=== PATIENT | male | born 1970 | race African-American/Black ===

== ENCOUNTER 2016-12-06 22:54 | Emergency (ER) | payer BC, MEDICAID ==
[~2016-12-06] VITALS: Ht 162.6 cm; Wt 66.7 kg
[2016-12-07 01:24] VITALS: BP 114/72
== END 2016-12-07 01:27 | disposition home or self-care (01) ==
LOC: M ED 12-07 00:32
DX: K40.90 Unilateral inguinal hernia, without obstruction or gangrene, not specified as recurrent (principal)

== ENCOUNTER → 2017-02-11 | Day surgery (SDC) | payer BC ==
[~2017-02-11] VITALS: Ht 160 cm; Wt 63.5 kg
[~2017-02-11] MED LIST: AUGM875T28 PO; BUPIVACAINE HCL 0.25% 30 ML VIAL As Ordered ONE; GLYCOPYRROLATE INJ 0.2 MG/ML 2 ML VIAL As Ordered ONE; IBUP-1114 PO; IBUP200C10 PO; IBUP80TA PO; KETOROLAC 30 MG/ML VIAL (J1885) As Ordered ONE; KETOROLAC 30 MG/ML VIAL (J1885) IV PRN; KETOROLAC 60 MG/2 ML VIAL (J1885) As Ordered ONE; LIDOCAINE 1% SDV INJ 30 ML VIAL As Ordered ONE; LIDOCAINE 2% INJ 100 MG/5 ML SDV (FOR ANES.) As Ordered ONE; LR 1,000 ML IV ONE; LR 1,000 ML IV SCH; METOCLOPRAMIDE INJ 10MG/2ML VIAL (J2765) As Ordered ONE; MIDAZOLAM INJ 2 MG/2 ML VIAL (J2250) As Ordered ONE; NEOSTIGMINE 1MG/ML 5 ML SYRINGE (J2710) As Ordered ONE; NORC1TAB4 PO; NORCO, ANEXSIA 5/325MG TABLET (HYDROcodone/ACETAMINOPHEN) PO PRN; ONDANSETRON 4MG/2ML VIAL (J2405) As Ordered ONE; ONDANSETRON 4MG/2ML VIAL (J2405) IV PRN; PERCOCET 5MG/325MG TAB PO PRN; PROPOFOL 200 MG/20 ML VIAL As Ordered ONE; ROCURONIUM BROMIDE 50 MG/5 ML VIAL/SYRINGE As Ordered ONE; dexameTHASONE 4 MG/ML 1ML VIAL (J1100) As Ordered ONE; fentaNYL 250 MCG/5 ML INJECTION (J3010) As Ordered ONE
--- NOTE | 2017-02-11 09:52 | ROOPDOC ---
[facility] Report Of Operation Report of Operation DATE OF PROCEDURE: 02/11/17 PREPROCEDURE DIAGNOSES: Bilateral inguinal hernia, left more symptomatic than right. POSTPROCEDURE DIAGNOSES: bilateral indirect inguinal hernia. PROCEDURE: Robotic Assisted Laparoscopic bilateral inguinal hernia repair(EVERARDO) . SURGEON: Marcelo Gagnon MD [facility] ADMINISTRATOR: Grabiel Geiger MD, Lauren HAYES ANESTHESIA: general. ESTIMATED BLOOD LOSS: Approximately 10 mL. COMPLICATIONS: none. REMARKS: Healthy 46 year old male with symptomatic left inguinal hernia also found to have a right inguinal hernia on exam precenting for bilateral inguinal hernia repair. DESCRIPTION OF PROCEDURE: Patient received 2 g of Ancef IV preoperatively for wound prophylaxis. Patient was brought to the operating room, placed supine on the operating table. Compression boots placed in both lower extremities for DVT prophylaxis. After adequate general anesthesia started, he was placed on a lithotomy position. A shin catheter placed without difficulty. His abdomen and groin/pelvic area then prepped and draped in the usual sterile fashion. After a surgical timeout we began our surgery. Entry to the abdomen done through a small incision above the umbilical skin cleft. A Veress needle is inserted on a controlled fashion. CO2 insufflation started to pressure 15 mmHg. Using the same incision a 5 mm Visiport was then placed under direct vision of laparoscope. The insertion site was inspected for injury and none was found. Patient was then positioned on a Trendelenburg position with the symptomatic (left) side tilted upwards for adequate view of the hernia defect. 2 working ports placed to the right and left of the umbilicus along the same line. The da Conrad robot to our was then positioned in between the patient's legs and the trochars doctor onto the robot. I then unscrubbed and to control of the camera and the laparoscopic instruments at the surgeon's console. Presence of bilateral indirect inguinal hernia was found. The left side appears larger than the right. Nothing was passing through the hernia defect. Starting at the left side. The peritoneum was opened up about 3 cm above the superior edge of the fascial defect of the inguinal hernia starting at the medial umbilical ligament going in an arc-like fashion laterally towards the level of the anterior superior iliac spine. This was then dissected mostly bluntly away from the abdominal wall. On approaching the inguinal hernia defect the hernia sac was pulled back into the preperitoneal space and carefully dissected off the testicular vessels and vas deferens. He has a large and redundant inguinal hernia sac which was fully reduced back into the abdomen. Moderate-sized lipoma was found and dissected free from the rest of the structures. Both these structures were promptly identified and from the hernia sac. After freeing up the hernia sac we continued dissecting it off inferiorly to from the vas deferens and testicular vessels. The preperitoneal space was dissected medially to expose the pubic tubercle up towards the symphysis pubis. The remaining areolar fibers were bluntly dissected away from the abdominal wall to create space for the mesh. After fully dissecting the preperitoneal space, we checked for adequate hemostasis. A medium sized 3-D Max light mesh was chosen. This was placed through the laparoscopic port into the abdomen. This was positioned in the preperitoneal space abutting the abdominal wall to adequately cover the indirect as well as direct hernia space. I made sure the mesh was laying flat on the abdominal wall. This was secured onto the pubic tubercle with a single stitch of 2-0 Vicryl. Again after checking for hemostasis the preperitoneal space was then closed by suturing the peritoneal incision using a running stitch of 2-0V LOC. In the same fashion the right-sided indirect inguinal hernia repair was also repaired.The peritoneum was opened up about 3 cm above the superior edge of the fascial defect of the inguinal hernia starting at the medial umbilical ligament going in an arc-like fashion laterally towards the level of the anterior superior iliac spine. This was then dissected mostly bluntly away from the abdominal wall. On approaching the inguinal hernia defect the hernia sac was pulled back into the preperitoneal space and carefully dissected off the testicular vessels and vas deferens. Both these structures were promptly identified and from the hernia sac. After freeing up the hernia sac we continued dissecting it off inferiorly to from the vas deferens and testicular vessels. The preperitoneal space was dissected medially to expose the pubic tubercle up towards the symphysis pubis. The remaining areolar fibers were bluntly dissected away from the abdominal wall to create space for the mesh. After fully dissecting the preperitoneal space, we checked for adequate hemostasis. A medium sized 3-D Max light mesh was chosen. This was placed through the laparoscopic port into the abdomen. This was positioned in the preperitoneal space abutting the abdominal wall to adequately cover the indirect as well as direct hernia space. I made sure the mesh was laying flat on the abdominal wall. This was secured onto the pubic tubercle with a single stitch of 2-0 Vicryl. Again after checking for hemostasis the preperitoneal space was then closed by suturing the peritoneal incision using a running stitch of 2-0V LOC. Prior to coming out a survey of the abdomen was done to make sure no inadvertent injury occurred. I then scrubbed back in. The abdomen was deflated and all ports removed. The 3 incisions were closed with 4-0 Monocryl in a subcuticular fashion. Dermabond was used for dressing. Shin catheter was removed. Patient was then promptly awakened and extubated and brought to the recovery room stable . All counts of sponges and instruments were verified correct. ZACK GAGNON MD Feb 11, 2017 09:52
[2017-02-11] MEDS: fentaNYL 100 MCG/2 ML INJECTION (J3010) IV PRN ×3 (10:30→10:45)
[2017-02-11 12:45] VITALS: BP 123/82
== END | disposition home or self-care (01) ==
LOC: M SDC 05:58
PROVIDERS: ATTEND Surgery
DX: K40.20 Bilateral inguinal hernia, without obstruction or gangrene, not specified as recurrent (principal); Z72.0 Tobacco use
CPT/HCPCS: 49650; C1781; J0690; J1100; J1885; J2250; J2405; J2710; J2765; J3010

== ENCOUNTER 2017-04-11 20:38 | Emergency (ER) | payer BC, SELFPAY ==
[~2017-04-11] VITALS: Ht 162.6 cm; Wt 65.9 kg
[2017-04-11 20:43] VITALS: BP 145/93
[2017-04-11] MEDS ORDERED: IBUP-1114 PO (20:53)
[2017-04-11] MEDS ORDERED: IBUP200C10 PO (20:53)
[2017-04-11] MEDS ORDERED: NORC1TAB4 PO (21:35)
[2017-04-11] MEDS ORDERED: IBUP80TA PO (21:35)
[2017-04-11] MEDS ORDERED: AUGM875T28 PO (21:35)
[2017-04-11] MEDS ORDERED: AUGMENTIN 875 MG TAB PO ONE (21:45)
[2017-04-11] MEDS ORDERED: NORCO 5/325MG TABLET (BULK FOR ED) PO ONE (21:45)
== END 2017-04-11 21:47 | disposition home or self-care (01) ==
LOC: M ED 20:38
DX: K02.9 Dental caries, unspecified (principal); Z72.0 Tobacco use